=== PATIENT | male | born 1985 | race Two or more races ===

== ENCOUNTER 2018-06-29 10:48 | Emergency (ER) | payer SELFPAY ==
[2018-06-29] MEDS ORDERED: ASPIRIN 81 MG TABLET, CHEWABLE PO ONE (11:24)
--- NOTE | 2018-06-29 11:27 | ER Document Report ---
ED Medical Screen (RME) - General Chief Complaint: Chest Pain Stated Complaint: CHEST/BACK PAIN, ARM NUMBNESS Time Seen by Provider: 06/29/18 11:19 Mode of Arrival: Ambulatory Information source: Patient Notes: 32-year-old male with no reported past medical history presents with complaint of chest pain that started this morning while at work. Patient describes the pain as pressure-like, constant and with radiation to his back. Patient denies prior similar symptoms, recent illness. Does report a family history of early cardiac disease in his father. I have greeted and performed a rapid initial assessment of this patient. A comprehensive ED assessment and evaluation of the patient, analysis of test results and completion of medical decision making process we will be contacted by additional ED providers. PHYSICAL EXAMINATION: Vital signs reviewed GENERAL: Well-appearing, well-nourished and in no acute distress. LUNGS: No respiratory distress Musculoskeletal: Normal range of motion NEUROLOGICAL: Normal speech, normal gait. PSYCH: Normal mood, normal affect. SKIN: Warm, Dry, normal turgor, no rashes or lesions noted. TRAVEL OUTSIDE OF THE [place] IN LAST 30 DAYS: No - HPI Onset: This morning Onset/Duration: Sudden Quality of pain: Pressure Severity: Moderate Associated Symptoms: Chest pain, Shortness of breath. denies: Cough (productive), Cough (nonproductive) Exacerbated by: Movement Relieved by: Denies Similar symptoms previously: No Recently seen / treated by doctor: No - Related Data Smoking: Cigarettes Frequency of alcohol use: None Drug Abuse: None Allergies/Adverse Reactions: No Known Allergies Allergy (Verified 06/29/18 11:21) Home Medications: potassium OTC medication Past Medical History - Social History Frequency of alcohol use: None Drug Abuse: None Renal/ Medical History: Denies: Hx Peritoneal Dialysis Past Surgical History: Reports: Hx Orthopedic Surgery - left knee Physical Exam - Vital signs Vitals: Temp Pulse Resp BP Pulse Ox 97.8 F 72 20 127/91 H 96 06/29/18 11:06/29/18 11:06/29/18 11:06/29/18 11:06/29/18 11:09 Course - Vital Signs Vital signs: Temp Pulse Resp BP Pulse Ox 97.8 F 72 20 127/91 H 96 06/29/18 11:09 06/29/18 11:09 06/29/18 11:09 06/29/18 11:09 06/29/18 11:09
[2018-06-29 11:59] LABS: ABSOLUTE BASOPHILS # (AUTO) 0.1 10^3/uL (0.0-0.2); ABSOLUTE EOSINOPHILS # (AUTO) 0.2 10^3/uL (0.0-0.6); ABSOLUTE LYMPHOCYTES (AUTO) 1.8 10^3/uL (0.5-4.7); ABSOLUTE MONOCYTES (AUTO) 0.6 10^3/uL (0.1-1.4); ABSOLUTE NEUT (AUTO) 4.3 10^3/uL (1.7-8.2); BASOPHILS % (AUTO) 0.8 % (0-2); EOSINOPHILS % (AUTO) 3.3 % (0-6); HEMATOCRIT 51.5 % (37.9-51.0); HEMOGLOBIN 17.5 g/dL (13.5-17.0); LYMPHOCYTES % (AUTO) 25.3 % (13-45); MEAN CORPUSCULAR HEMOGLOBIN 32.6 pg (27.0-33.4); MEAN CORPUSCULAR VOLUME 96 fl (80-97); MONOCYTES % (AUTO) 8.9 % (3-13); PLATELET COUNT 175 10^3/uL (150-450); RED BLOOD COUNT 5.36 10^6/uL (4.35-5.55); RED CELL DISTRIBUTION WIDTH 13.1 % (11.5-14.0); SEGMENTED NEUTROPHILS % (AUTO) 61.7 % (42-78); TOTAL CELLS COUNTED % (AUTO) 100 %
--- NOTE | 2018-06-29 12:07 | RADIOLOGY REPORT (SQ) ---
EXAM DESCRIPTION: CHEST 2 VIEWS COMPLETED DATE/TIME: 06/29/2018 11:59 am REASON FOR STUDY: Chest pain COMPARISON: None. EXAM PARAMETERS: NUMBER OF VIEWS: two views TECHNIQUE: Digital Frontal and Lateral radiographic views of the chest acquired. RADIATION DOSE: NA LIMITATIONS: none FINDINGS: LUNGS AND PLEURA: No opacities, masses or pneumothorax. No pleural effusion. MEDIASTINUM AND HILAR STRUCTURES: No masses or contour abnormalities. HEART AND VASCULAR STRUCTURES: Heart normal size. No evidence for failure. BONES: No acute findings. HARDWARE: None in the chest. OTHER: No other significant finding. IMPRESSION: NO ACUTE RADIOGRAPHIC FINDING IN THE CHEST. TECHNICAL DOCUMENTATION: JOB ID: [id number] [employer]- All Rights Reserved Reading location - IP/workstation name: [email or web address]
[2018-06-29 12:13] LABS: ALANINE AMINOTRANSFERASE 35 U/L (21-72); ALBUMIN 4.9 g/dL (3.5-5.0); ALKALINE PHOSPHATASE 100 U/L (38-126); ANION GAP 10 (5-19); ASPARTATE AMINO TRANSFERASE 33 U/L (17-59); BILIRUBIN,DIRECT 0.3 mg/dL (0.0-0.4); BILIRUBIN,TOTAL 0.8 mg/dL (0.2-1.3); BLOOD UREA NITROGEN 12 mg/dL (7-20); CARBON DIOXIDE 28 mmol/L (22-30); CHLORIDE 105 mmol/L (98-107); CREATINE KINASE 408 U/L (55-170); GLUCOSE 80 mg/dL (75-110); POTASSIUM 4.8 mmol/L (3.6-5.0); SODIUM 143.3 mmol/L (137-145); TOTAL PROTEIN 7.8 g/dL (6.3-8.2)
[2018-06-29 12:25] LABS: CREATINE KINASE MB 0.81 ng/mL (<4.55)
[2018-06-29 12:27] LABS: TROPONIN I < 0.012 ng/mL
--- NOTE | 2018-06-29 12:58 | ER Document Report ---
ED General - General Chief Complaint: Chest Pain Stated Complaint: CHEST/BACK PAIN, ARM NUMBNESS Time Seen by Provider: 06/29/18 11:19 Mode of Arrival: Ambulatory Notes: 32-year-old male with no reported past medical history presents with complaint of chest pain that started this morning while at work. Patient describes the pain as pressure-like, constant and with radiation to his back. Patient denies prior similar symptoms, recent illness. Patient says he was having bilateral flank pain yesterday, increased since fluids and placed on some Aspercreme last night. His gave him some muscle relaxers and it resolved and he went to bed. This morning he woke up fine but then when he went to work and was outside for about an hour he started having these current symptoms. He denies diaphoresis or nausea, complains of lightheadedness and shortness of breath which has resolved. Patient is currently chest pain-free. Patient is a cigarette smoker and occasional marijuana smoker. Other complaints does report a family history of early cardiac disease in his father. TRAVEL OUTSIDE OF THE [place] IN LAST 30 DAYS: No - Related Data Allergies/Adverse Reactions: No Known Allergies Allergy (Verified 06/29/18 11:21) Home Medications: potassium OTC medication Past Medical History - General Information source: Patient - Social History Smoking Status: Current Every Day Smoker Frequency of alcohol use: None Drug Abuse: None Family History: CAD - Father cardiac arrest age 52 Patient has suicidal ideation: No Patient has homicidal ideation: No Renal/ Medical History: Denies: Hx Peritoneal Dialysis Past Surgical History: Reports: Hx Orthopedic Surgery - left knee Review of Systems - Review of Systems Constitutional: See HPI EENT: No symptoms reported Cardiovascular: See HPI Respiratory: See HPI Gastrointestinal: See HPI Genitourinary: No symptoms reported Male Genitourinary: No symptoms reported Musculoskeletal: See HPI Skin: No symptoms reported Hematologic/Lymphatic: No symptoms reported Neurological/Psychological: See HPI Physical Exam - Vital signs Vitals: Temp Pulse Resp BP Pulse Ox 97.8 F 72 20 127/91 H 96 06/29/18 11:09 06/29/18 11:09 06/29/18 11:09 06/29/18 11:09 06/29/18 11:09 - Notes Notes: PHYSICAL EXAMINATION: Reviewed vital signs and charting by RN GENERAL: Alert, interacts well. No acute distress. HEAD: Normocephalic, atraumatic. EYES: Pupils equal, round. Extraocular movements intact. ENT: Oral mucosa moist NECK: Full range of motion. Trachea midline. LUNGS: Clear to auscultation bilaterally, no wheezes, rales, or rhonchi. No respiratory distress. HEART: Regular rate and rhythm. No murmur ABDOMEN: soft, non-tender. Non-distended. Bowel sounds present in all 4 quadrants. no McBurney's point tenderness, no Guidry sign. EXTREMITIES: Moves all 4 extremities spontaneously. No edema, No cyanosis. NEUROLOGICAL: Alert. Normal speech. PSYCH: Normal affect, normal mood. SKIN: Warm, dry, normal turgor. No rashes or lesions noted. Course - Re-evaluation Re-evalutation: 06/29/18 13:23 Overall well-appearing 32-year-old male. Chest pain workup initiated. Chest x- ray normal. EKG normal. All labs normal. CK 408. I ordered a urinalysis. Troponin negative. 06/29/18 13:25 06/29/18 13:26 HEART Score: History 0 ECG 0 Age 0 Risk Factors 1 Troponin 0 Total: 1 If HEART score is = 3 AND both tronponin measurments are normal, the 30 day risk of a major adverse cardiac event (all-cause mortality, myocardia infarction or need for coronary revscularization) is < 1% (Sensitivity 100%, NPV 100%). Chest pain in a patient without evidence of cardiac or other serious etiology on workup today. I discussed with patient that, based on their age, risk factors and emergency department testing today, the likelihood that their symptoms are related to a heart attack is very low (estimated risk of heart attack or over the next 30 days of less than 1%). The patient demonstrates decision making capacity and has verbalized an understanding of these risks to me. Based on this, the patient has chosen to follow-up as an outpatient. Usual chest pain return precautions reviewed. The patient states understanding and agreement with this plan. 06/29/18 15:23 A second troponin was drawn and was negative. I talked the patient and I understand his family history with his father having a cardiac arrest at age 52 and dying his concerns. I also told him that this could represent some type of reactive airway to the cold. I explained to patient that he had a negative cardiac workup. I told him he needs to follow-up with his primary care doctor by the end of the week. Patient understands everything and is reassured. Patient is stable for discharge. - Vital Signs Vital signs: Temp Pulse Resp BP Pulse Ox 98.4 F 72 21 H 125/88 H 99 06/29/18 13:00 06/29/18 11:09 06/29/18 14:01 06/29/18 14:01 06/29/18 14:01 - Laboratory Result Diagrams: 06/29/18 11:35 06/29/18 11:35 Laboratory results interpreted by me: 06/29/18 06/29/18 06/29/18 11:35 11:35 14:25 Hgb 17.5 H Hct 51.5 H Creatine Kinase 408 H Urine Ketones TRACE H Urine Urobilinogen 4.0 H Ur Leukocyte Esterase TRACE H Urine Ascorbic Acid 20 H Discharge - Discharge Clinical Impression: Shortness of breath Chest pain Qualifiers: Chest pain type: unspecified Qualified Code(s): R07.9 - Chest pain, unspecified Condition: Good Disposition: HOME, SELF-CARE Instructions: Chest Pain of Unclear Cause ([facility]) Additional Instructions: You were seen today for chest pain. The exact cause of your pain is unclear. However, based on your cardiac enzyme testing, chest x-ray, and EKG it does not appear that it is from an immediately life-threatening cause at this time. Although your testing here is normal is critical that you follow-up with your primary care physician for continued evaluation of this chest pain and possible stress testing. I recommended you see your physician within the next 24-48 hours to be evaluated for consideration of a stress test. Please return to emergency department immediately if you have worsening of your chest pain, shortness of breath, vomiting, become unable to exert yourself due to pain or difficulty breathing, you pass out, or have any pain that radiates into your arms, jaw, or back. Please also return if you have any additional symptoms that are concerning to you.
--- NOTE | 2018-06-29 13:02 | EKG REPORT ---
SEVERITY:- NORMAL ECG - SINUS RHYTHM : Confirmed by: Adama Garcia MD 29-Jun-2018 13:00:40
[2018-06-29 14:43] LABS: APPEARANCE,URINE CLEAR; BILIRUBIN,URINE NEGATIVE (NEGATIVE); COLOR,URINE YELLOW; GLUCOSE, URINE NEGATIVE (NEGATIVE); KETONES,URINE TRACE mg/dL (NEGATIVE); LEUKOCYTE ESTERASE,URINE TRACE (NEGATIVE); NITRITE,URINE NEGATIVE (NEGATIVE); PROTEIN,URINE NEGATIVE (NEGATIVE); URINE SPECIFIC GRAVITY 1.023
[2018-06-29 16:13] VITALS: BP 126/86
== END 2018-06-29 16:13 | disposition home or self-care (01) ==
LOC: ER 10:48
DX: R06.02 Shortness of breath (principal); R07.9 Chest pain, unspecified; R20.0 Anesthesia of skin; M54.9 Dorsalgia, unspecified; F17.210 Nicotine dependence, cigarettes, uncomplicated
CPT/HCPCS: 36415; 71046; 80053; 81001; 82550; 82553; 84484; 85025; 93005; 93010; 99285

== ENCOUNTER 2018-11-15 12:24 | Inpatient (IN) | payer SELFPAY ==
[2018-11-15] MEDS ORDERED: RINGERS SOLUTION,LACTATED 1,000 ML IV ONE ×2 (12:27→12:28)
--- NOTE | 2018-11-15 12:38 | ER Document Report ---
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 He is not been out of the sun except for maybe half an hour since that time. States he has been drinking water all morning. He states he has not drink any Gatorade today. I have greeted and performed a rapid initial assessment of this patient. A comprehensive ED assessment and evaluation of the patient, analysis of test results and completion of medical decision making process will be conducted by an additional ED providers. Dictation of this chart was performed using voice recognition software; therefore, there may be some unintended grammatical errors. TRAVEL OUTSIDE OF THE [place] IN LAST 30 DAYS: No - Related Data Allergies/Adverse Reactions: No Known Allergies Allergy (Verified 06/29/18 11:21) Past Medical History Renal/ Medical History: Denies: Hx Peritoneal Dialysis Past Surgical History: Reports: Hx Orthopedic Surgery - left knee Physical Exam - Vital signs Vitals: Temp Pulse Resp BP Pulse Ox 97.6 F 117 H 26 H 148/118 H 100 11/15/18 12:26 11/15/18 12:26 11/15/18 12:11/15/18 12:11/15/18 12:26 Course - Vital Signs Vital signs: Temp Pulse Resp BP Pulse Ox 97.6 F 117 H 26 H 148/118 H 100 11/15/18 12:26 11/15/18 12:26 11/15/18 12:26 11/15/18 12:26 11/15/18 12:26
[2018-11-15 12:45] LABS: ABSOLUTE BASOPHILS # (AUTO) 0.1 10^3/uL (0.0-0.2); ABSOLUTE EOSINOPHILS # (AUTO) 0.3 10^3/uL (0.0-0.6); ABSOLUTE LYMPHOCYTES (AUTO) 2.8 10^3/uL (0.5-4.7); ABSOLUTE MONOCYTES (AUTO) 1.1 10^3/uL (0.1-1.4); ABSOLUTE NEUT (AUTO) 6.7 10^3/uL (1.7-8.2); HEMATOCRIT 50.2 % (37.9-51.0); HEMOGLOBIN 16.9 g/dL (13.5-17.0); LYMPHOCYTES % (AUTO) 25.8 % (13-45); MEAN CORPUSCULAR HEMOGLOBIN 32.5 pg (27.0-33.4); MEAN CORPUSCULAR HGB CONC 33.6 g/dL (32.0-36.0); MEAN CORPUSCULAR VOLUME 97 fl (80-97); MONOCYTES % (AUTO) 9.7 % (3-13); PLATELET COUNT 203 10^3/uL (150-450); RED BLOOD COUNT 5.19 10^6/uL (4.35-5.55); RED CELL DISTRIBUTION WIDTH 13.3 % (11.5-14.0); SEGMENTED NEUTROPHILS % (AUTO) 60.5 % (42-78); TOTAL CELLS COUNTED % (AUTO) 100 %
[2018-11-15] MEDS: MAGNESIUM SULFATE/D5W 1 GM/100 ML RTUPB IV SCH ×2 (13:01→13:18)
[2018-11-15 13:09] LABS: ALANINE AMINOTRANSFERASE 65 U/L (21-72); ALBUMIN 5.1 g/dL (3.5-5.0); ALKALINE PHOSPHATASE 82 U/L (38-126); ANION GAP 18 (5-19); ASPARTATE AMINO TRANSFERASE 65 U/L (17-59); BILIRUBIN,DIRECT 0.3 mg/dL (0.0-0.4); BILIRUBIN,TOTAL 1.2 mg/dL (0.2-1.3); BLOOD UREA NITROGEN 17 mg/dL (7-20); CALCIUM 10.5 mg/dL (8.4-10.2); CARBON DIOXIDE 21 mmol/L (22-30); CHLORIDE 100 mmol/L (98-107); GLUCOSE 121 mg/dL (75-110); POTASSIUM 4.4 mmol/L (3.6-5.0); SODIUM 139.4 mmol/L (137-145); TOTAL PROTEIN 8.1 g/dL (6.3-8.2)
[2018-11-15 13:21] LABS: CREATINE KINASE MB 2.58 ng/mL (<4.55)
[2018-11-15 13:24] LABS: TROPONIN I < 0.012 ng/mL
--- NOTE | 2018-11-15 13:38 | ER Document Report ---
ED General - General Chief Complaint: Shortness Of Breath Stated Complaint: DIFFICULTY BREATHING/WEAKNESS Time Seen by Provider: 11/15/18 12:26 Mode of Arrival: Wheelchair Information source: Patient, Relative TRAVEL OUTSIDE OF THE [place] IN LAST 30 DAYS: No - HPI Patient complains to provider of: weakness -- working outside in the heat Onset: This morning - state pt was feeling well earlier this am and then was working outside all day when he started cramping in his lower back and then progressed to his legs. - Related Data Allergies/Adverse Reactions: No Known Allergies Allergy (Verified 06/29/18 11:21) Past Medical History - General Information source: Patient - Social History Smoking Status: Current Every Day Smoker Drug Abuse: Marijuana Family History: CAD - Father cardiac arrest age 52 Patient has suicidal ideation: No Patient has homicidal ideation: No Renal/ Medical History: Denies: Hx Peritoneal Dialysis Past Surgical History: Reports: Hx Orthopedic Surgery - left knee Review of Systems - Review of Systems Constitutional: See HPI, Weakness EENT: No symptoms reported Cardiovascular: No symptoms reported Respiratory: No symptoms reported Gastrointestinal: No symptoms reported Musculoskeletal: See HPI, Back pain Neurological/Psychological: No symptoms reported -: Yes All other systems reviewed and negative Physical Exam - Vital signs Vitals: Temp Pulse Resp BP Pulse Ox 97.6 F 117 H 26 H 148/118 H 100 11/15/18 12:26 11/15/18 12:26 11/15/18 12:26 11/15/18 12:26 11/15/18 12:26 - General General appearance: Anxious In distress: Mild - HEENT Head: Normocephalic Mouth/Lips: Normal Mucous membranes: Dry Pharynx: Normal Neck: Normal - Respiratory Respiratory status: No respiratory distress Breath sounds: Normal - Cardiovascular Rhythm: Regular Heart sounds: Normal auscultation Murmur: No - Abdominal Inspection: Normal Bowel sounds: Normal Tenderness: Nontender - Extremities General upper extremity: Normal inspection General lower extremity: Normal inspection - Neurological Neuro grossly intact: Yes Cognition: Normal Orientation: AAOx4 Speech: Normal Motor strength normal: LUE, RUE, LLE, RLE Course - Re-evaluation Re-evalutation: 11/15/18 14:46 pt. feels better at reassessment -- I will call hospitalist for admission - Vital Signs Vital signs: Temp Pulse Resp BP Pulse Ox 97.6 F 117 H 12 152/98 H 100 11/15/18 12:26 11/15/18 12:26 11/15/18 14:01 11/15/18 14:00 11/15/18 14:01 - Laboratory Result Diagrams: 11/15/18 12:30 11/15/18 12:30 Laboratory results interpreted by me: 11/15/18 11/15/18 11/15/18 12:30 12:30 12:30 WBC 11.0 H Carbon Dioxide 21 L Creatinine 1.61 H Est GFR ( Amer) 59 L Est GFR (Non-Af Amer) 49 L Glucose 121 H Lactic Acid 6.5 H Calcium 10.5 H AST 65 H Creatine Kinase Albumin 5.1 H Urine Ketones Urine Ascorbic Acid 11/15/18 11/15/18 12:30 13:59 WBC Carbon Dioxide Creatinine Est GFR ( Amer) Est GFR (Non-Af Amer) Glucose Lactic Acid Calcium AST Creatine Kinase 1240 H Albumin Urine Ketones 25 H Urine Ascorbic Acid 40 H - EKG Interpretation by Me EKG shows normal: Sinus rhythm Rate: Normal Rhythm: NSR - nsr without acute change Critical Care Note - Critical Care Note Total time excluding time spent on procedures (mins): 30 Discharge - Discharge Clinical Impression: Rhabdomyolysis Qualifiers: Rhabdomyolysis type: non-traumatic Qualified Code(s): M62.82 - Rhabdomyolysis Condition: Stable Disposition: ADMITTED OBSERVATION Admitting Provider: Lamberto (Hospitalist) Unit Admitted: Telemetry
[2018-11-15 14:03] LABS: CREATINE KINASE 1240 U/L (55-170)
[2018-11-15 14:06] LABS: C-REACTIVE PROTEIN < 5.0 mg/L (<10.0)
[2018-11-15 14:16] LABS: APPEARANCE,URINE CLEAR; BILIRUBIN,URINE NEGATIVE (NEGATIVE); COLOR,URINE STRAW; GLUCOSE, URINE NEGATIVE (NEGATIVE); KETONES,URINE 25 mg/dL (NEGATIVE); LEUKOCYTE ESTERASE,URINE NEGATIVE (NEGATIVE); NITRITE,URINE NEGATIVE (NEGATIVE); PROTEIN,URINE NEGATIVE (NEGATIVE); URINE SPECIFIC GRAVITY 1.009; UROBILINOGEN,URINE NEGATIVE mg/dL (<2.0)
[2018-11-15] MEDS ORDERED: ACETAMINOPHEN 325 MG TABLET PO PRN (15:56)
[2018-11-15] MEDS ORDERED: MAG HYDROX/AL HYDROX/SIMETH SUSP 30 ML UDCUP PO PRN (15:56)
[2018-11-15] MEDS ORDERED: PROMETHAZINE HCL INJ 25 MG/1 ML VIAL IV PRN (15:56)
[2018-11-15] MEDS ORDERED: ONDANSETRON HCL INJ/PF 4 MG/2 ML SDV IV PRN (15:56)
[2018-11-15] MEDS ORDERED: TRAMADOL HCL 50 MG TABLET PO PRN (16:02)
[2018-11-15] MEDS ORDERED: CYCLOBENZAPRINE HCL 10 MG TABLET PO PRN (16:02)
--- NOTE | 2018-11-15 16:12 | PDOC H&P ---
History of Present Illness Admission Date/PCP: 11/15/18 15:15 History of Present Illness: MARICARMEN MONTANEZ JR is a 33 year old male whose only medical history is tobacco dependence with continuous use and occasional THC use who presented to the emergency department today with generalized weakness, headache, and muscle cramps after doing yard work this morning for about 4 hours in the high heat/humidity. Evaluation in the emergency department revealed tachycardia, tachypnea, mild l eukocytosis (WBCs 11), MARYBETH (creatinine 1.6), rhabdomyolysis (CK 1200), and lactic acidosis (lactic acid 6) with normal EKG findings. Patient has no obvious source of infections, blood cultures have been sent. He is referred to the hospitalist service for admission and management of rhabdomyolysis with associated MARYBETH and lactic acidosis. Past Medical History Cardiac Medical History: Reports: None Pulmonary Medical History: Reports: None EENT Medical History: Reports: None Neurological Medical History: Reports: None Endocrine Medical History: Reports: None Renal/ Medical History: Reports: None Malignancy Medical History: Reports: None GI Medical History: Reports: None Musculoskeltal Medical History: Reports: None Skin Medical History: Reports: None Psychiatric Medical History: Reports: Substance Abuse, Tobacco Dependency Traumatic Medical History: Reports: None Hematology: Reports: None Infectious Medical History: Reports: None Past Surgical History Past Surgical History: Reports: Orthopedic Surgery - Elbow, left knee, Other - eye Social History Information Source: Patient Lives with: Spouse/Significant other Smoking Status: Current Every Day Smoker Cigarettes Packs Per Day: 0.5 Frequency of Alcohol Use: Rare Hx Recreational Drug Use: Yes Drugs: Marijuana Hx Prescription Drug Abuse: No - Advance Directive Resuscitation Status: Full Code Family History Family History: CAD - Father cardiac arrest age 52 Parental Family History Reviewed: Yes Children Family History Reviewed: Yes Sibling(s) Family History Reviewed.: Yes Medication/Allergy Allergies/Adverse Reactions: No Known Allergies Allergy (Verified 06/29/18 11:21) Review of Systems Constitutional: PRESENT: fatigue, weakness. ABSENT: chills, fever(s), heada emiliano(s), weight gain, weight loss Eyes: ABSENT: visual disturbances Ears: ABSENT: hearing changes Cardiovascular: ABSENT: chest pain, dyspnea on exertion, edema, orthropnea, palpitations Respiratory: ABSENT: cough, hemoptysis Gastrointestinal: ABSENT: abdominal pain, constipation, diarrhea, hematemesis, hematochezia, nausea, vomiting Genitourinary: ABSENT: dysuria, hematuria Musculoskeletal: PRESENT: other - Generalized muscle cramping. ABSENT: joint swelling Integumentary: ABSENT: rash, wounds Neurological: ABSENT: abnormal gait, abnormal speech, confusion, dizziness, focal weakness, syncope Psychiatric: ABSENT: anxiety, depression, homidical ideation, suicidal ideation Endocrine: ABSENT: cold intolerance, heat intolerance, polydipsia, polyuria Hematologic/Lymphatic: ABSENT: easy bleeding, easy bruising Physical Exam Vital Signs: Temp Pulse Resp BP Pulse Ox 97.6 F 117 H 16 138/87 H 100 11/15/18 12:26 11/15/18 12:26 11/15/18 15:01 11/15/18 15:01 11/15/18 15:01 Intake & Output 11/14/18 11/15/18 11/16/18 06:59 06:59 06:59 Intake Total 1200 Balance 1200 Weight 122.9 kg General appearance: PRESENT: no acute distress, cooperative, well-developed, wel l-nourished - Overweight Head exam: PRESENT: atraumatic, normocephalic Eye exam: PRESENT: conjunctiva pink, EOMI, PERRLA. ABSENT: scleral icterus Ear exam: PRESENT: normal external ear exam Mouth exam: PRESENT: moist, tongue midline Neck exam: ABSENT: carotid bruit, JVD, lymphadenopathy, thyromegaly Respiratory exam: PRESENT: clear to auscultation henry, symmetrical, unlabored. ABSENT: rales, rhonchi, wheezes Cardiovascular exam: PRESENT: RRR, +S1, +S2. ABSENT: diastolic murmur, rubs, systolic murmur Pulses: PRESENT: normal dorsalis pedis pul Vascular exam: PRESENT: normal capillary refill GI/Abdominal exam: PRESENT: normal bowel sounds, soft. ABSENT: distended, guarding, mass, organolmegaly, rebound, tenderness Rectal exam: PRESENT: deferred Extremities exam: PRESENT: full ROM. ABSENT: calf tenderness, clubbing, pedal edema Neurological exam: PRESENT: alert, awake, oriented to person, oriented to place, oriented to time, oriented to situation, CN II-XII grossly intact. ABSENT: motor sensory deficit Psychiatric exam: PRESENT: appropriate affect, normal mood. ABSENT: homicidal ideation, suicidal ideation Skin exam: PRESENT: dry, intact, warm. ABSENT: cyanosis, rash Results Laboratory Results: 11/15/18 12:30 11/15/18 12:30 11/15/18 11/15/18 11/15/18 12:30 12:30 12:30 WBC 11.0 H RBC 5.19 Hgb 16.9 Hct 50.2 MCV 97 MCH 32.5 MCHC 33.6 RDW 13.3 Plt Count 203 Seg Neutrophils % 60.5 Lymphocytes % 25.8 Monocytes % 9.7 Eosinophils % 3.0 Basophils % 1.0 Absolute Neutrophils 6.7 Absolute Lymphocytes 2.8 Absolute Monocytes 1.1 Absolute Eosinophils 0.3 Absolute Basophils 0.1 Sodium 139.4 Potassium 4.4 Chloride 100 Carbon Dioxide 21 L Anion Gap 18 BUN 17 Creatinine 1.61 H Est GFR ( Amer) 59 L Est GFR (Non-Af Amer) 49 L Glucose 121 H Lactic Acid 6.5 H Calcium 10.5 H Magnesium 2.1 Total Bilirubin 1.2 AST 65 H ALT 65 Alkaline Phosphatase 82 C-Reactive Protein Total Protein 8.1 Albumin 5.1 H Urine Color Urine Appearance Urine pH Ur Specific [place] Urine Protein Urine Glucose (UA) Urine Ketones Urine Blood Urine Nitrite Ur Leukocyte Esterase Urine WBC (Auto) 11/15/18 11/15/18 12:30 13:59 WBC RBC Hgb Hct MCV MCH MCHC RDW Plt Count Seg Neutrophils % Lymphocytes % Monocytes % Eosinophils % Basophils % Absolute Neutrophils Absolute Lymphocytes Absolute Monocytes Absolute Eosinophils Absolute Basophils Sodium Potassium Chloride Carbon Dioxide Anion Gap BUN Creatinine Est GFR ( Amer) Est GFR (Non-Af Amer) Glucose Lactic Acid Calcium Magnesium Total Bilirubin AST ALT Alkaline Phosphatase C-Reactive Protein < 5.0 Total Protein Albumin Urine Color STRAW Urine Appearance CLEAR Urine pH 8.0 Ur Specific [place] 1.009 Urine Protein NEGATIVE Urine Glucose (UA) NEGATIVE Urine Ketones 25 H Urine Blood NEGATIVE Urine Nitrite NEGATIVE Ur Leukocyte Esterase NEGATIVE Urine WBC (Auto) 1 11/15/18 11/15/18 12:30 12:30 Creatine Kinase 1240 H CK-MB (CK-2) 2.58 Troponin I < 0.012 Assessment and Plan - Diagnosis (1) Rhabdomyolysis Qualifiers: Rhabdomyolysis type: non-traumatic Qualified Code(s): M62.82 - Rhabdomyolysis Is this a current diagnosis for this admission?: Yes Plan: Patient is admitted w/ CK 1240, MARYBETH, and lactic acidosis. He has already been provided 2L NS by ED provider w/ resolved tachycardia, tachypnea, and muscle spasms. Patient reports continued generalized weakness but otherwise feels better. He is admitted to medical floor and continuous cardiac telemetry. We will provide generous IV fluids. Monitor serial chemistry and daily CK. (2) MARYBETH (acute kidney injury) Is this a current diagnosis for this admission?: Yes Plan: Secondary to #1. Avoid nephrotoxic medications as able. Daily chemistries. (3) Lactic acidosis Is this a current diagnosis for this admission?: Yes Plan: Likely secondary to #1. Patient does have a minimally elevated WBC to 11 but no indications of active infectious process. IV fluids as above. Repeat lactic acid this evening. Blood cultures pending. (4) Leukocytosis Is this a current diagnosis for this admission?: Yes Plan: Likely secondary to #1. Blood cultures pending. No indications of active infectious process; no indications for antibiotic therapy at this time. (5) Tobacco dependence Is this a current diagnosis for this admission?: Yes Plan: Smoking cessation is encouraged. Patient declines nicotine replacement therapies. - Time Time Spent with patient: 35 or more minutes Medications reviewed and adjusted accordingly: Yes Anticipated discharge: Home Within: within 24 hours
[2018-11-15 17:15] LABS: ANION GAP 8 (5-19); BLOOD UREA NITROGEN 15 mg/dL (7-20); CALCIUM 9.5 mg/dL (8.4-10.2); CARBON DIOXIDE 27 mmol/L (22-30); CHLORIDE 104 mmol/L (98-107); GLUCOSE 80 mg/dL (75-110); POTASSIUM 5.2 mmol/L (3.6-5.0); SODIUM 138.8 mmol/L (137-145)
--- NOTE | 2018-11-15 19:20 | EKG REPORT ---
SEVERITY:- NORMAL ECG - SINUS RHYTHM : Confirmed by: Norma Martinez MD 15-Nov-2018 19:19:59
[2018-11-15] MEDS: NORMAL SALINE 1000 ML 1,000 ML IV PRN (20:55)
[2018-11-15] MEDS: FAMOTIDINE 20 MG TABLET PO SCH (22:47)
[2018-11-15] MEDS: HEPARIN SOD (PORCINE) 5,000 UNIT/ML 1 ML SYRINGE SUBCUT SCH (22:47)
[2018-11-16 05:02] LABS: HEMATOCRIT 42.3 % (37.9-51.0); MEAN CORPUSCULAR HEMOGLOBIN 32.7 pg (27.0-33.4); MEAN CORPUSCULAR HGB CONC 33.6 g/dL (32.0-36.0); MEAN CORPUSCULAR VOLUME 97 fl (80-97); PLATELET COUNT 151 10^3/uL (150-450); RED BLOOD COUNT 4.34 10^6/uL (4.35-5.55); RED CELL DISTRIBUTION WIDTH 12.9 % (11.5-14.0); WHITE BLOOD COUNT 8.6 10^3/uL (4.0-10.5)
[2018-11-16 05:15] LABS: ANION GAP 6 (5-19); BLOOD UREA NITROGEN 15 mg/dL (7-20); CALCIUM 8.5 mg/dL (8.4-10.2); CARBON DIOXIDE 26 mmol/L (22-30); CHLORIDE 108 mmol/L (98-107); GLUCOSE 93 mg/dL (75-110); POTASSIUM 4.5 mmol/L (3.6-5.0); SODIUM 139.7 mmol/L (137-145)
[2018-11-16 05:16] LABS: HEMOGLOBIN 14.2 g/dL (13.5-17.0)
[2018-11-16 05:24] LABS: CREATINE KINASE 1992 U/L (55-170)
[2018-11-16] MEDS ORDERED: PROPOFOL INJ 200 MG/20 ML VIAL IV ONE (05:57)
[2018-11-16] MEDS: HEPARIN SOD (PORCINE) 5,000 UNIT/ML 1 ML SYRINGE SUBCUT SCH ×3 (06:35→21:26)
[2018-11-16] MEDS: DOCUSATE SODIUM 100 MG CAPSULE PO SCH (10:01)
[2018-11-16] MEDS: FAMOTIDINE 20 MG TABLET PO SCH ×2 (10:01→22:11)
[2018-11-16] MEDS: NORMAL SALINE 1000 ML 1,000 ML IV PRN ×2 (10:01→18:41)
[2018-11-16] MEDS: NICOTINE 14 MG/24 HR PATCH.TD24 TD SCH (20:10)
--- NOTE | 2018-11-16 23:02 | PDOC PROGRESS REPORT ---
Subjective Progress Note for:: 11/16/18 Subjective:: patient is feeling better. muscle weakness is resolving. urine is straw to francisco color. trend labs one more day and plan to d/c in am. continue fluids. Reason For Visit: RHABDOMYOLYSIS,MARYBETH, LACTIC ACIDOSIS Physical Exam Vital Signs: Temp Pulse Resp BP Pulse Ox 98.1 F 72 18 114/58 L 92 11/16/18 08:00 11/16/18 08:00 11/16/18 08:00 11/16/18 08:00 11/16/18 08:00 Intake & Output 11/15/18 11/16/18 11/17/18 06:59 06:59 06:59 Intake Total 2200 1000 Balance 2200 1000 Weight 122 kg General appearance: PRESENT: no acute distress, well-developed, well-nourished Head exam: PRESENT: atraumatic, normocephalic Eye exam: PRESENT: conjunctiva pink, EOMI, PERRLA. ABSENT: scleral icterus Ear exam: PRESENT: normal external ear exam Mouth exam: PRESENT: moist, tongue midline Neck exam: ABSENT: carotid bruit, JVD, lymphadenopathy, thyromegaly Respiratory exam: PRESENT: clear to auscultation henry. ABSENT: rales, rhonchi, wheezes Cardiovascular exam: PRESENT: RRR. ABSENT: diastolic murmur, rubs, systolic murmur Pulses: PRESENT: normal dorsalis pedis pul Vascular exam: PRESENT: normal capillary refill GI/Abdominal exam: PRESENT: normal bowel sounds, soft. ABSENT: distended, guarding, mass, organolmegaly, rebound, tenderness Rectal exam: PRESENT: deferred Extremities exam: PRESENT: full ROM. ABSENT: calf tenderness, clubbing, pedal edema Neurological exam: PRESENT: alert, awake, oriented to person, oriented to place, oriented to time, oriented to situation, CN II-XII grossly intact. ABSENT: motor sensory deficit Psychiatric exam: PRESENT: appropriate affect, normal mood. ABSENT: homicidal ideation, suicidal ideation Skin exam: PRESENT: dry, intact, warm. ABSENT: cyanosis, rash Results Laboratory Results: 11/16/18 04:29 11/16/18 04:29 11/16/18 11/16/18 04:29 04:29 WBC 8.6 RBC 4.34 L Hgb 14.2 D Hct 42.3 MCV 97 MCH 32.7 MCHC 33.6 RDW 12.9 Plt Count 151 Sodium 139.7 Potassium 4.5 Chloride 108 H Carbon Dioxide 26 Anion Gap 6 BUN 15 Creatinine 1.18 Est GFR ( Amer) > 60 Est GFR (Non-Af Amer) > 60 Glucose 93 Calcium 8.5 11/15/18 11/15/18 11/16/18 12:30 12:30 04:29 Creatine Kinase 1240 H 1992 H CK-MB (CK-2) 2.58 Troponin I < 0.012 Assessment and Plan - Diagnosis (1) MARYBETH (acute kidney injury) Is this a current diagnosis for this admission?: Yes Plan: improved. continue fluids. trend bmp (2) Lactic acidosis Is this a current diagnosis for this admission?: Yes Plan: resolved. (3) Rhabdomyolysis Qualifiers: Rhabdomyolysis type: non-traumatic Qualified Code(s): M62.82 - Rhabdomyolysis Is this a current diagnosis for this admission?: Yes Plan: trend ck. improving. continue ivf. denies stimulant/drug use (4) Tobacco dependence Is this a current diagnosis for this admission?: Yes Plan: cessation encouraged. - Time Time Spent with patient: 15-24 minutes - Plan Summary Plan Summary: trend labs. d/c 11/17
[2018-11-17] MEDS: HEPARIN SOD (PORCINE) 5,000 UNIT/ML 1 ML SYRINGE SUBCUT SCH ×3 (05:40→22:29)
[2018-11-17 06:32] LABS: ALANINE AMINOTRANSFERASE 55 U/L (21-72); ALBUMIN 3.2 g/dL (3.5-5.0); ALKALINE PHOSPHATASE 54 U/L (38-126); ASPARTATE AMINO TRANSFERASE 63 U/L (17-59); BILIRUBIN,DIRECT 0.2 mg/dL (0.0-0.4); BILIRUBIN,TOTAL 0.4 mg/dL (0.2-1.3); BLOOD UREA NITROGEN 12 mg/dL (7-20); CALCIUM 8.2 mg/dL (8.4-10.2); GLUCOSE 87 mg/dL (75-110); PHOSPHORUS 3.4 mg/dL (2.5-4.5); POTASSIUM 4.5 mmol/L (3.6-5.0); TOTAL PROTEIN 5.4 g/dL (6.3-8.2)
[2018-11-17 06:36] LABS: CARBON DIOXIDE 24 mmol/L (22-30); CHLORIDE 110 mmol/L (98-107); SODIUM 138.3 mmol/L (137-145)
[2018-11-17 06:42] LABS: ANION GAP 4 (5-19); CREATINE KINASE 2226 U/L (55-170)
[2018-11-17] MEDS ORDERED: NORMAL SALINE 1000 ML 1,000 ML IV ONE (08:45)
--- NOTE | 2018-11-17 09:09 | PDOC PROGRESS REPORT ---
Subjective Progress Note for:: 11/17/18 Subjective:: patient continues to report no muscle weakness or pain. urine is clearer. more of a light yellow. CK conitnues to trend upward. he is only really drinking apple juice, and limited amounts. also had iv infiltrate overnight, and has swelling from that is improving with ice pack Reason For Visit: RHABDOMYOLYSIS,MARYBETH, LACTIC ACIDOSIS Physical Exam Vital Signs: Temp Pulse Resp BP Pulse Ox 98.5 F 60 16 143/61 H 100 11/17/18 00:20 11/17/18 07:00 11/17/18 00:20 11/17/18 00:20 11/17/18 00:20 Intake & Output 11/16/18 11/17/18 11/18/18 06:59 06:59 06:59 Intake Total 2200 3080 Balance 2200 3080 Weight 122 kg 122 kg General appearance: PRESENT: no acute distress, well-developed, well-nourished Head exam: PRESENT: atraumatic, normocephalic Eye exam: PRESENT: conjunctiva pink, EOMI, PERRLA. ABSENT: scleral icterus Ear exam: PRESENT: normal external ear exam Mouth exam: PRESENT: moist, tongue midline Neck exam: ABSENT: carotid bruit, JVD, lymphadenopathy, thyromegaly Respiratory exam: PRESENT: clear to auscultation henry. ABSENT: rales, rhonchi, wheezes Cardiovascular exam: PRESENT: RRR. ABSENT: diastolic murmur, rubs, systolic murmur Pulses: PRESENT: normal dorsalis pedis pul Vascular exam: PRESENT: normal capillary refill GI/Abdominal exam: PRESENT: normal bowel sounds, soft. ABSENT: distended, guarding, mass, organolmegaly, rebound, tenderness Rectal exam: PRESENT: deferred Extremities exam: PRESENT: full ROM, other - LUE swelling/fluid in AC and proximal area. ABSENT: calf tenderness, clubbing, pedal edema Neurological exam: PRESENT: alert, awake, oriented to person, oriented to place, oriented to time, oriented to situation, CN II-XII grossly intact. ABSENT: m otor sensory deficit Psychiatric exam: PRESENT: appropriate affect, normal mood. ABSENT: homicidal ideation, suicidal ideation Skin exam: PRESENT: dry, intact, warm. ABSENT: cyanosis, rash Results Laboratory Results: 11/16/18 04:29 11/17/18 05:33 11/17/18 05:33 Sodium 138.3 Potassium 4.5 Chloride 110 H Carbon Dioxide 24 Anion Gap 4 L BUN 12 Creatinine 1.01 Est GFR ( Amer) > 60 Est GFR (Non-Af Amer) > 60 Glucose 87 Calcium 8.2 L Phosphorus 3.4 Magnesium 2.0 Total Bilirubin 0.4 AST 63 H ALT 55 Alkaline Phosphatase 54 Total Protein 5.4 L Albumin 3.2 L 11/15/18 11/15/18 11/16/18 12:30 12:30 04:29 Creatine Kinase 1240 H 1992 H CK-MB (CK-2) 2.58 Troponin I < 0.012 11/17/18 05:33 Creatine Kinase 2226 H CK-MB (CK-2) Troponin I Assessment and Plan - Diagnosis (1) MARYBETH (acute kidney injury) Is this a current diagnosis for this admission?: Yes Plan: Creatinine within normal range. Improved with IV fluids. (2) Lactic acidosis Is this a current diagnosis for this admission?: Yes Plan: Resolved (3) Rhabdomyolysis Qualifiers: Rhabdomyolysis type: non-traumatic Qualified Code(s): M62.82 - Rhabdomyolysis Is this a current diagnosis for this admission?: Yes Plan: trend ck. denies stimulant/drug or statin use. Clinically asymptomatic. No pain. Increase IV fluids to 225/hr after given a 1 L bolus of normal saline (4) Tobacco dependence Is this a current diagnosis for this admission?: Yes - Time Time Spent with patient: 15-24 minutes - Inpatient Certification Based on my medical assessment, after consideration of the patient's comorbidities, presenting symptoms, or acuity I expect that the services needed warrant INPATIENT care.: Yes I certify that my determination is in accordance with my understanding of Medicare's requirements for reasonable and necessary INPATIENT services [42 CFR 412.3e].: Yes - Plan Summary Plan Summary: increase ivf and try to send home tomorrow
[2018-11-17] MEDS: FAMOTIDINE 20 MG TABLET PO SCH ×2 (10:33→22:29)
[2018-11-17] MEDS: DOCUSATE SODIUM 100 MG CAPSULE PO SCH (10:33)
[2018-11-17] MEDS: NICOTINE 14 MG/24 HR PATCH.TD24 TD SCH (10:33)
[2018-11-17] MEDS: NORMAL SALINE 1000 ML 1,000 ML IV PRN ×3 (11:57→22:27)
[2018-11-18] MEDS: NORMAL SALINE 1000 ML 1,000 ML IV PRN (03:25)
[2018-11-18 05:47] LABS: HEMATOCRIT 39.5 % (37.9-51.0); HEMOGLOBIN 13.3 g/dL (13.5-17.0); MEAN CORPUSCULAR HEMOGLOBIN 32.9 pg (27.0-33.4); MEAN CORPUSCULAR HGB CONC 33.7 g/dL (32.0-36.0); MEAN CORPUSCULAR VOLUME 97 fl (80-97); PLATELET COUNT 136 10^3/uL (150-450); RED BLOOD COUNT 4.05 10^6/uL (4.35-5.55); WHITE BLOOD COUNT 7.2 10^3/uL (4.0-10.5)
[2018-11-18 06:02] LABS: BLOOD UREA NITROGEN 13 mg/dL (7-20); CALCIUM 8.4 mg/dL (8.4-10.2); CARBON DIOXIDE 23 mmol/L (22-30); CHLORIDE 112 mmol/L (98-107); CREATINE KINASE 1203 U/L (55-170); GLUCOSE 89 mg/dL (75-110); POTASSIUM 4.5 mmol/L (3.6-5.0)
[2018-11-18 06:08] LABS: SODIUM 139.3 mmol/L (137-145)
[2018-11-18 06:13] LABS: ANION GAP 4 (5-19)
[2018-11-18] MEDS: HEPARIN SOD (PORCINE) 5,000 UNIT/ML 1 ML SYRINGE SUBCUT SCH (06:28)
[2018-11-18] MEDS: DOCUSATE SODIUM 100 MG CAPSULE PO SCH (09:28)
[2018-11-18] MEDS: FAMOTIDINE 20 MG TABLET PO SCH (09:29)
--- NOTE | 2018-11-18 09:50 | PDOC DISCHARGE SUMMARY ---
General - Admit/Disc Date/PCP Admission Date/Primary Care Provider: 11/15/18 15:56 Discharge Date: 11/18/18 - Discharge Diagnosis (1) MARYBETH (acute kidney injury) Is this a current diagnosis for this admission?: Yes Summary: resolved with IVF and increased po fluid intake (2) Lactic acidosis Is this a current diagnosis for this admission?: Yes Summary: resolved early in admission, due to rhabdo (3) Rhabdomyolysis Is this a current diagnosis for this admission?: Yes Summary: resolved with IVF. CK trending down. patient has been encouraged to continue po water intake (4) Tobacco dependence Is this a current diagnosis for this admission?: Yes Summary: cessation encouraged. no meds desired at this time - Additional Information Resuscitation Status: Full Code Discharge Diet: As Tolerated Discharge Activity: Activity As Tolerated Home Medications: Multivitamin [One-A-Day Essential] 1 each PO DAILY 11/15/18 History of Present Illness History of Present Illness: MARICARMEN MONTANEZ JR is a 33 year old male whose only medical history is tobacco dependence with continuous use and occasional THC use who presented to the emergency department today with generalized weakness, headache, and muscle cramps after doing yard work this morning for about 4 hours in the high heat/humidity.Evaluation in the emergency department revealed tachycardia, tachypnea, mild leukocytosis (WBCs 11), MARYBETH (creatinine 1.6), rhabdomyolysis (CK 1200), and lactic acidosis (lactic acid 6) with normal EKG findings. Patient has no obvious source of infections, blood cultures have been sent.He is referred to the hospitalist service for admission and management of rhabdomyolysis with associated MARYBETH and lactic acidosis. Hospital Course Hospital Course: see problem list. Physical Exam Vital Signs: Temp Pulse Resp BP Pulse Ox 98.3 F 59 L 20 135/92 H 97 11/18/18 07:55 11/18/18 07:55 11/18/18 07:55 11/18/18 07:55 11/18/18 07:55 Intake & Output 11/17/18 11/18/18 11/19/18 06:59 06:59 06:59 Intake Total 3080 5409 Balance 3080 5409 Weight 122 kg 125 kg Results Laboratory Results: 11/18/18 04:50 11/18/18 04:50 11/18/18 11/18/18 04:50 04:50 WBC 7.2 RBC 4.05 L Hgb 13.3 L Hct 39.5 MCV 97 MCH 32.9 MCHC 33.7 RDW 13.0 Plt Count 136 L Sodium 139.3 Potassium 4.5 Chloride 112 H Carbon Dioxide 23 Anion Gap 4 L BUN 13 Creatinine 0.99 Est GFR ( Amer) > 60 Est GFR (Non-Af Amer) > 60 Glucose 89 Calcium 8.4 11/15/18 11/15/18 11/16/18 12:30 12:30 04:29 Creatine Kinase 1240 H 1992 H CK-MB (CK-2) 2.58 Troponin I < 0.012 11/17/18 11/18/18 05:33 04:50 Creatine Kinase 2226 H 1203 H CK-MB (CK-2) Troponin I Qualifiers - * PATIENT BEING DISCHARGED WITH ANY OF THE FOLLOWING DIAGNOSIS: No Acute Heart Failure - Is this a Heart Failure Patient?: No Plan Discharge Plan: f/u with pcp. continue with increased oral water intake. limit sugary drinks. dilute with water. patient may return to work thursday. Time Spent: Greater than 30 Minutes
[2018-11-18 12:34] VITALS: BP 142/83
[2018-11-18] MEDS ORDERED: ONDANSETRON HCL INJ/PF 4 MG/2 ML SDV IV PRN (13:00)
[2018-11-18] MEDS ORDERED: PROMETHAZINE HCL INJ 25 MG/1 ML VIAL IV PRN (13:00)
== END 2018-11-18 12:56 | disposition home or self-care (01) | DRG 558 ==
LOC: ER 12:24 → EH 15:15 → OBSVTOIN 15:56 → 5 20:28
PROVIDERS: ADMIT Internal Medicine; ATTEND Internal Medicine
DX: M62.82 Rhabdomyolysis (principal); N17.9 Acute kidney failure, unspecified; E87.2 Acidosis; F17.200 Nicotine dependence, unspecified, uncomplicated; F12.90 Cannabis use, unspecified, uncomplicated; D72.829 Elevated white blood cell count, unspecified; Z82.49 Family history of ischemic heart disease and other diseases of the circulatory system
CPT/HCPCS: 36415; 80048; 80053; 81001; 82550; 82553; 83605; 83735; 84100; 84484; 85025; 85027; 86140; 87040; 87077; 87186; 93005; 93010; 96361; 96365; 99284; J1644; J3475; J7030; J7120